=== PATIENT | male | born 1950 | race Caucasian/White ===

== ENCOUNTER 2021-05-04 18:45 | Inpatient (IN) | payer MEDICARE, OTHER ==
[~2021-05-04] VITALS: Ht 188 cm; Wt 68.0 kg
[2021-05-04 20:38] LABS: HEMOGLOBIN 13.5 gm/dl (14.0-17.5); RED BLOOD COUNT 4.37 M/UL (4.20-5.50); WHITE BLOOD COUNT 20.9 K/UL (4.5-11.0)
[2021-05-04 21:09] LABS: BUN/CREATININE RATIO 12 (0-10)
[2021-05-05 03:36] LABS: HEMOGLOBIN 13.8 gm/dl (14.0-17.5); RED BLOOD COUNT 4.46 M/UL (4.20-5.50); WHITE BLOOD COUNT 17.5 K/UL (4.5-11.0)
[2021-05-05 03:59] LABS: BUN/CREATININE RATIO 14 (0-10)
--- NOTE | 2021-05-05 10:34 | NUR ---
[id number] nj of consult but unsuccessful
[2021-05-06 04:48] LABS: HEMOGLOBIN 12.7 gm/dl (14.0-17.5); RED BLOOD COUNT 4.14 M/UL (4.20-5.50); WHITE BLOOD COUNT 14.2 K/UL (4.5-11.0)
[2021-05-06 05:21] LABS: BUN/CREATININE RATIO 17 (0-10)
[2021-05-07 03:19] LABS: HEMOGLOBIN 12.6 gm/dl (14.0-17.5); RED BLOOD COUNT 4.11 M/UL (4.20-5.50); WHITE BLOOD COUNT 14.3 K/UL (4.5-11.0)
[2021-05-07 03:55] LABS: BUN/CREATININE RATIO 16 (0-10)
[2021-05-08 03:05] LABS: HEMOGLOBIN 12.1 gm/dl (14.0-17.5); RED BLOOD COUNT 3.96 M/UL (4.20-5.50); WHITE BLOOD COUNT 11.1 K/UL (4.5-11.0)
[2021-05-08 03:34] LABS: BUN/CREATININE RATIO 16 (0-10)
[2021-05-08] MEDS ORDERED: PERCOCET 5/325 T1 EA PO (10:22)
[2021-05-08] MEDS ORDERED: ENOXAPARIN40 MG/0.4 SC (10:22)
== END 2021-05-08 19:00 | DRG 522 ==
LOC: ER1 18:45 → CDU 20:54 → M/S 20:54
PROVIDERS: Orthopaedic Surgery; Physician Assistant; ADMIT Internal Medicine
PROC: 0SRR0J9 Replacement of Right Hip Joint, Femoral Surface with Synthetic Substitute, Cemented, Open Approach (ICD-10-PCS; principal; 2021-05-05 08:59)
DX: S72.031A Displaced midcervical fracture of right femur, initial encounter for closed fracture (principal); W18.30XA Fall on same level, unspecified, initial encounter; F17.290 Nicotine dependence, other tobacco product, uncomplicated; Z20.822 Contact with and (suspected) exposure to COVID-19; D72.828 Other elevated white blood cell count; R01.1 Cardiac murmur, unspecified; Y93.9 Activity, unspecified; Y92.009 Unspecified place in unspecified non-institutional (private) residence as the place of occurrence of the external cause; Z88.0 Allergy status to penicillin; Z90.49 Acquired absence of other specified parts of digestive tract; Z80.9 Family history of malignant neoplasm, unspecified; Z83.3 Family history of diabetes mellitus; Z82.49 Family history of ischemic heart disease and other diseases of the circulatory system
CPT/HCPCS: 36415; 71045; 73501; 73502; 73552; 80048; 80053; 82550; 82553; 83874; 84484; 85025; 85027; 85610; 93005; 96374; 96375; 97110-GP-CQ; 97116-GP-CQ; 97162; 97166; 97530-GP-CQ; 97535; 99284; C1776; J1100; J1170; J1650; J2001; J2270; J2405; J2704; J2710; J3010; J7120; U0002